=== PATIENT | male | born 1980 | race Hispanic/Latino ===

== ENCOUNTER 2018-07-25 19:29 | Emergency (ER) | payer OTHER ==
[2018-07-25 21:13] LABS: Hemoglobin 13.9 g/dL (14.0-18.0); Mean Corpuscular HGB CONC 34.1 g/dL (32.0-36.0); Mean Corpuscular Hemoglobin 31.6 pg (27.0-31.0); Mean Corpuscular Volume 92.5 fL (78.0-98.0); Platelet Count 198 thou/uL (130-400); RBC Distribution Width 13.9 % (11.5-14.5); Red Blood Cell (RBC) Count 4.39 mill/uL (4.70-6.10); White Blood Cell (WBC) Count 10.7 thou/uL (4.8-10.8)
[2018-07-25] MEDS ORDERED: Morphine 4 MG/ML VIAL ONE ×2 (21:13→21:16)
[2018-07-25] MEDS ORDERED: Piperacillin/Tazobactam 4.5 GM VIAL ONE (21:14)
[2018-07-25] MEDS ORDERED: Ondansetron PF 4 MG/2 ML Vial ONE (21:14)
[2018-07-25 21:25] LABS: #Basophils 0.1 thou/uL (0.0-0.2); #Eosinphils 0.1 thou/uL (0.0-0.7); #Lymphocytes 3.2 thou/uL (1.20-3.40); #Monocytes 1.2 thou/uL (0.11-0.59); #Neutrophils 6.1 thou/uL (1.40-6.50); %Basophils 0.7 % (0.0-1.0); %Eosinophils 1.4 % (0.0-10.0); %Lymphocytes 29.6 % (21.0-51.0); %Monocytes 11.4 % (0.0-10.0); %Neutrophils 56.9 % (42.0-75.0); Large Platelets SLIGHT; MDiff Complete? YES; Platelet Morphology Comment Appears Adequate
[2018-07-25 22:11] LABS: Albumin 3.5 g/dL (3.5-5.0)
[2018-07-25 22:12] LABS: Calcium 8.7 mg/dL (7.8-10.44); Chloride 108 mmol/L (98-107); Potassium 4.2 mmol/L (3.5-5.1); Sodium 134 mmol/L (136-145)
[2018-07-25 22:13] LABS: Glucose 99 mg/dL (70-105)
[2018-07-25 22:14] LABS: Anion Gap 16 mmol/L (10-20); Carbon Dioxide 14 mmol/L (22-29); Globulin 3.8 g/dL (2.4-3.5); Protein, Total 7.3 g/dL (6.0-8.3)
[2018-07-25 22:15] LABS: Bilirubin, Total 0.5 mg/dL (0.2-1.2)
[2018-07-25] MEDS ORDERED: Lisinopril 20 MG TAB PO SCH (22:15)
[2018-07-25] MEDS ORDERED: Hydrochlorothiazide 25 MG TAB PO SCH (22:15)
[2018-07-25 22:16] LABS: Alkaline Phosphatase 54 U/L (40-150)
[2018-07-25 22:17] LABS: BUN (Urea Nitrogen) 14 mg/dL (8.9-20.6); Calc. Creatinine Clearance 0 mL/min (70-130); Estimated GFR-MDRD 87
[2018-07-25 22:18] LABS: AST (SGOT) 16 U/L (5-34)
[2018-07-25 22:19] LABS: ALT (SGPT) 30 U/L (8-55)
[2018-07-25] MEDS ORDERED: Vancomycin HCl 1.5 GM in Sodium Chloride 0.9% 250 ML 300 ML IVPB SCH (23:00)
[2018-07-26] MEDS ORDERED: Morphine 4 MG/ML VIAL ONE (07:37)
== END 2018-07-25 23:40 | disposition short-term general hospital (02) ==
LOC: ERS 19:29 → EEVIPCON 19:29 → ERS 23:40
DX: L03.116 Cellulitis of left lower limb (principal); I10 Essential (primary) hypertension; E78.5 Hyperlipidemia, unspecified; E11.9 Type 2 diabetes mellitus without complications; E66.9 Obesity, unspecified; G40.909 Epilepsy, unspecified, not intractable, without status epilepticus; Z79.84 Long term (current) use of oral hypoglycemic drugs; Z79.899 Other long term (current) drug therapy
CPT/HCPCS: 36415; 80053; 83605; 85025; 87040; 87149; 96361; 96365; 96375; J2270; J2405; J2543; J3370; J7050